=== PATIENT | female | born 1965 | race Caucasian/White ===

== ENCOUNTER → 2018-07-02 | Outpatient (CLI) | payer OTHER | LOC: CAT 09:24 | DX: Z13.6 Encounter for screening for cardiovascular disorders (principal); E78.00 Pure hypercholesterolemia, unspecified ==

== ENCOUNTER → 2019-09-23 | Outpatient (CLI) | payer OTHER | LOC: RAD 09:54 | DX: Z12.31 Encounter for screening mammogram for malignant neoplasm of breast (principal) ==

== ENCOUNTER → 2020-04-02 | Outpatient (CLI) | payer OTHER | LOC: RAD 11:56 | PROVIDERS: ATTEND Nurse Practitioner | DX: S92.902A Unspecified fracture of left foot, initial encounter for closed fracture (principal); X58.XXXA Exposure to other specified factors, initial encounter; Y93.89 Activity, other specified; Y92.89 Other specified places as the place of occurrence of the external cause; Y99.8 Other external cause status ==

== ENCOUNTER → 2020-05-02 | Outpatient (CLI) | payer OTHER | LOC: RAD 13:50 | PROVIDERS: ATTEND Orthopaedic Surgery Foot and Ankle Surgery | DX: S92.515D Nondisplaced fracture of proximal phalanx of left lesser toe(s), subsequent encounter for fracture with routine healing (principal); X58.XXXD Exposure to other specified factors, subsequent encounter ==